=== PATIENT | male | born 1985 | race Caucasian/White ===

== ENCOUNTER 2016-09-30 17:59 | Inpatient (IN) | payer BC ==
[~2016-09-30] VITALS: Ht 175.3 cm; Wt 88.2 kg
[~2016-09-30 17:59] MED LIST: PSDUNK
[2016-09-30 18:39] LABS: BASO % 0.3 %; BASO ABS # 0.02 K/uL (0-0.2); COMPLETE YES; EOS % 0.5 %; HEMATOCRIT 42.5 % (42-52); IG% 0.2 %; LYMPH % 36.3 %; LYMPH ABS # 2.26 K/uL (1.2-3.4); MEAN CORPUSCULAR HEMOGLOBIN 28.7 pg (25-34); MEAN CORPUSCULAR HGB CONC 34.1 g/dl (32-36); MEAN PLATELET VOLUME 9.9 fL (7.4-10.4); MONO % 10.6 %; NEUT % 52.1 %; PLATELET COUNT 227 K/uL (130-400); RED BLOOD COUNT 5.06 M/uL (4.7-6.1); WHITE BLOOD COUNT 6.23 K/uL (4.8-10.8)
--- NOTE | 2016-09-30 18:43 | DIAGNOSTIC IMAGING REPORT ---
CHEST ONE VIEW PORTABLE HISTORY: Atypical Chest Pain COMPARISON: None. FINDINGS: The lungs are clear. Cardiac silhouette is top normal in size. This may be accentuated by the portable technique. No pleural effusions. No pneumothorax. IMPRESSION: No acute process. Electronically signed by: Bong Grant M.D. 09/30/2016 6:41 PM Dictated Date/Time: 09/30/2016 6:40 PM
[2016-09-30 18:57] LABS: BLOOD UREA NITROGEN 21 mg/dl (7-18); BUN/CREATININE RATIO 16.5 (10-20); CALCIUM 8.7 mg/dl (8.5-10.1); CARBON DIOXIDE 27 mmol/L (21-32); CHLORIDE 108 mmol/L (98-107); GLUCOSE 101 mg/dl (70-99); POTASSIUM 3.7 mmol/L (3.5-5.1); SODIUM 140 mmol/L (136-145)
[2016-09-30] MEDS ORDERED: NITROGLYCERIN 0.4 MG SL PER TAB CHARGE SL PRN ×2 (19:00→20:00)
[2016-09-30 19:01] LABS: CKMB/CK RATIO 1.1 (0-3.0)
[2016-09-30] MEDS ORDERED: SODIUM CHLORIDE 0.9% 500ML 500 ML IV STA (19:29)
[2016-09-30] MEDS ORDERED: METOPROLOL TARTRATE 25 MG TAB PO ONE (19:50)
[2016-09-30] MEDS ORDERED: ASPIRIN 324 MG CHEW PO STA (19:55)
[2016-09-30] MEDS ORDERED: NITROGLYCERIN OINT 2% 1GM PACKET ONE (19:57)
[2016-09-30] MEDS ORDERED: ASPIRIN 324 MG CHEW ONE (19:59)
[2016-09-30] MEDS ORDERED: ONDANSETRON INJ 2 MG/ML 2 ML VIAL IV PRN (20:00)
[2016-09-30] MEDS: NITROGLYCERIN OINT 2% 1GM PACKET EXT SCH (20:01)
--- NOTE | 2016-09-30 20:01 | EMERGENCY ROOM VISIT NOTE ---
History Report prepared by Obinna: Hebert Walters Under the Supervision of: Dr. Vinnie Andres D.O. First contact with patient: 18:07 Chief Complaint: CHEST PAIN Stated Complaint: REFERRED BY MD FOR CHEST PAIN History of Present Illness The patient is a 31 year old male who presents to the Emergency Room with complaints of constant middle chest pain since he woke up at 0630 this morning. The patient describes a pressure sensation. The pain improves somewhat when he lays down. The patient notices the pain more when he takes a deep breath. He denies radiation to the arm or jaw, diaphoresis, or nausea with the pain. He denies history of hypertension, diabetes, high cholesterol, CAD or sudden in family at a young age. No other medical problems. The patient denies history of blood clots, and has not had any recent long trips or surgeries. He denies any swelling of the legs or hemoptysis. He denies drug or alcohol use. He has no known tick bites recently. The patient was referred to the ED by [facility] because they could not obtain his blood work. He was given 324 mg Aspirin at [facility]. Patient denies headache, change in vision, cough, rhinorrhea, fevers, shortness of breath, vomiting, diarrhea, pain with urination, and melena. Source of History: patient Onset: 0630 this morning Position: chest Quality: pressure Timing: constant Modifying Factors (Relieving): other (laying down) Associated Symptoms: No fevers, No headache, No diaphoresis, No cough, No SOB, No nausea, No vomiting, No melena, No diarrhea, No urinary symptoms Review of Systems See HPI for pertinent positives & negatives. A total of 10 systems reviewed and were otherwise negative. Past Medical & Surgical Medical Problems: (1) No known health problems Family History No pertinent family history Social History Smoking Status: Never Smoker Occupation Status: employed Current/Historical Medications No Active Prescriptions or Reported Meds Allergies Coded Allergies: No Known Allergies (Unverified , 09/30/16) Physical Exam Vital Signs Date Time Temp Pulse Resp B/P (MAP) Pulse Ox O2 Delivery O2 Flow Rate FiO2 09/30/16 20:35 78 18 107/68 95 Room Air 09/30/16 19:37 79 18 131/64 95 Room Air 09/30/16 19:26 89 18 102/72 93 Room Air 09/30/16 19:17 83 18 127/76 96 Room Air 09/30/16 19:05 82 09/30/16 18:48 85 18 137/75 96 Room Air 09/30/16 18:32 Room Air 09/30/16 18:05 37.0 89 16 141/76 98 Room Air Physical Exam GENERAL: Sitting up in bed, alert, well appearing, well nourished, no distress, non-toxic EYE EXAM: normal conjunctiva. OROPHARYNX: no exudate, no erythema, lips, buccal mucosa, and tongue normal and mucous membranes are moist NECK: supple, no nuchal rigidity, no adenopathy, non-tender LUNGS: Clear to auscultation. Normal chest wall mechanics HEART: no murmurs, S1 normal and S2 normal ABDOMEN: abdomen soft, non-tender, normo-active bowel sounds, no masses, no rebound or guarding. BACK: Back is symmetrical on inspection and there is no deformity, no midline tenderness, no CVA tenderness. SKIN: no rashes and no bruising UPPER EXTREMITIES: upper extremities are grossly normal. LOWER EXTREMITIES: No pitting edema. Calves are equal bilaterally. NEURO EXAM: Normal sensorium, cranial nerves II-XII grossly intact, normal speech, no gross weakness of arms, no gross weakness of legs. Gross sensation intact. Medical Decision & Procedures ER Provider Diagnostic Interpretation: Radiology results as stated below per my review and the radiologist's interpretation: CHEST ONE VIEW PORTABLE HISTORY: Atypical Chest Pain COMPARISON: None. FINDINGS: The lungs are clear. Cardiac silhouette is top normal in size. This may be accentuated by the portable technique. No pleural effusions. No pneumothorax. IMPRESSION: No acute process. Electronically signed by: Bong Grant M.D. 09/30/2016 6:41 PM Dictated Date/Time: 09/30/2016 6:40 PM Laboratory Results 09/30/16 18:27 Red Blood Count 5.06, Mean Corpuscular Volume 84.0, Mean Corpuscular Hemoglobin 28.7, Mean Corpuscular Hemoglobin Concent 34.1, Mean Platelet Volume 9.9, Neutrophils (%) (Auto) 52.1, Lymphocytes (%) (Auto) 36.3, Monocytes (%) (Auto) 10.6, Eosinophils (%) (Auto) 0.5, Basophils (%) (Auto) 0.3, Neutrophils # (Auto ) 3.25, Lymphocytes # (Auto) 2.26, Monocytes # (Auto) 0.66, Eosinophils # (Auto ) 0.03, Basophils # (Auto) 0.02 09/30/16 18:27 Test 09/30/16 18:27 09/30/16 19:51 09/30/16 20:31 White Blood Count 6.23 K/uL (4.8-10.8) Red Blood Count 5.06 M/uL (4.7-6.1) Hemoglobin 14.5 g/dL (14.0-18.0) Hematocrit 42.5 % (42-52) Mean Corpuscular Volume 84.0 fL (80-100) Mean Corpuscular Hemoglobin 28.7 pg (25-34) Mean Corpuscular Hemoglobin Concent 34.1 g/dl (32-36) Platelet Count 227 K/uL (130-400) Mean Platelet Volume 9.9 fL (7.4-10.4) Neutrophils (%) (Auto) 52.1 % Lymphocytes (%) (Auto) 36.3 % Monocytes (%) (Auto) 10.6 % Eosinophils (%) (Auto) 0.5 % Basophils (%) (Auto) 0.3 % Neutrophils # (Auto) 3.25 K/uL (1.4-6.5) Lymphocytes # (Auto) 2.26 K/uL (1.2-3.4) Monocytes # (Auto) 0.66 K/uL (0.11-0.59) Eosinophils # (Auto) 0.03 K/uL (0-0.5) Basophils # (Auto) 0.02 K/uL (0-0.2) RDW Standard Deviation 39.5 fL (36.4-46.3) RDW Coefficient of Variation 13.0 % (11.5-14.5) Immature Granulocyte % (Auto) 0.2 % Immature Granulocyte # (Auto) 0.01 K/uL (0.00-0.02) D-Dimer 280 ug/L FEU (0-500) Anion Gap 5.0 mmol/L (3-11) Est Creatinine Clear Calc Drug Dose 89.6 ml/min Estimated GFR () 83.7 Estimated GFR (Non- 72.2 BUN/Creatinine Ratio 16.5 (10-20) Uric Acid 5.1 mg/dl (2.6-7.2) Calcium Level 8.7 mg/dl (8.5-10.1) Creatine Kinase MB Ratio (0-3.0) Laboratory results per my review. Medications Administered Medications (Trade) Dose Ordered Sig/Faisal Route Start Time Stop Time Status Last Admin Dose Admin Nitroglycerin (Nitrostat Tab) 0.4 mg Q5M PRN SL 09/30/16 19:00 10/30/16 18:59 09/30/16 19:17 0.4 MG Sodium Chloride 500 ml @ 999 mls/hr Q31M STAT IV 09/30/16 19:29 09/30/16 19:59 DC 09/30/16 19:29 999 MLS/HR Nitroglycerin (Nitroglycerin 2% Oint) 1 inch Q6H EXT 09/30/16 20:00 10/30/16 19:59 09/30/16 20:01 1 INCH Metoprolol Tartrate (Lopressor Tab) 25 mg 1950 ONCE PO 09/30/16 19:50 09/30/16 19:54 DC 09/30/16 20:09 25 MG Potassium Chloride/Sodium Chloride 1,000 ml @ 100 mls/hr Q10H IV 09/30/16 20:00 10/30/16 19:59 09/30/16 20:09 100 MLS/HR Aspirin (Aspirin Chew) 324 mg STK-MED ONCE .ROUTE 09/30/16 19:59 09/30/16 20:00 DC 09/30/16 20:01 324 MG ECG Indication: chest pain Rate (beats per minute): 88 Rhythm: sinus rhythm Findings: T-wave inversion (inferior and anterior leads), other (normal axis, normal intervals) Comparison ECG Date: no prior available ED Course ED COURSE: Vital signs were reviewed and showed hypertension. The patients medical record was reviewed The above diagnostic studies were performed and reviewed. ED treatments and interventions as stated above. 1814: The patient was evaluated in room C4. A complete history and physical examination was performed. 0: Nitroglycerin 0.4 mg SL. 1914: The patient is receiving his Nitro now. 0: The patient's chest pain has improved after Nitro. 1924: Discussed the case with Dr. Newton, [facility] [place]ist. The patient will be evaluated. 1928: NSS 500 ml @ 999 mls/hr. 1934: Upon reevaluation, the patient is doing fine.I discussed my findings with the patient and he understands and agrees with the treatment plan. Based on the patients age, coexisting illnesses, exam and lab findings the decision to treat as an inpatient was made. The patient remained stable while under my care. The patient will be evaluated for further management. 1939: Chest pain has resolved and the patient's repeat EKG is improved. Dr. Newton at bedside. Medical Decision Differential diagnoses includes but is not limited to acute coronary syndrome, myocardial infarction, pericarditis, pulmonary embolus, aortic dissection, pneumonia, pneumothorax, musculoskeletal, shingles, esophageal. Blood Pressure Screening: The patient was found to have a slightly elevated blood pressure due to circumstances. I do not believe that the patient requires hypertension monitoring. Medication Reconciliation: I attest that I have personally reviewed the patient' s current medication list. Patient is a 31-year-old male who presents the ER referred in [facility] for chest pain associated with abnormal EKG. EKG does show flipped T waves. A repeat EKG here was unchanged from the initial EKG at [facility]. Patient did still have mild chest tightness and was given nitroglycerin and the pain resolved per patient. Patient was given aspirin prior to arrival. He has no CVAT risk factors. No PE risk factors. D-dimer was negative. Troponin was negative. Hemoglobin was normal. No history of tick bites. Bedside ultrasound shows no pericardial fluid. LV appears slightly enlarged but no obvious wall motion abnormality. Patient was in its internal medicine for further workup overnight. Repeat EKG here was fairly unchanged as well prior to admission. Consults Time Called: 1919 Consulting Physician: Dr. Newton [facility] Hospitalist. Returned Call: 1924 The patient will be evaluated. Impression Primary Impression: Substernal precordial chest pain Additional Impression: Abnormal EKG Scribe Attestation The scribe's documentation has been prepared under my direction and personally reviewed by me in its entirety. I confirm that the note above accurately reflects all work, treatment, procedures, and medical decision making performed by me. Departure Information Dispostion Being Evaluated By Hospitalist Prescriptions No Active Prescriptions or Reported Meds Referrals No Doctor, Assigned (PCP) Patient Instructions My [facility] Problem Qualifiers
[2016-09-30] MEDS: NSS + 20MEQ KCL 1000ML 1,000 ML IV SCH (20:09)
--- NOTE | 2016-09-30 20:41 | History and Physical ---
History & Physical Date & Time of Service: Sep 30, 2016 at 20:29 Chief Complaint: Referred By Md For Chest Pain Primary Care Physician: No Doctor, Assigned History of Present Illness Source: patient The patient is a 31-year-old male who was woken up this morning by midsternal chest discomfort/chest pressure at around 0630 He went to work today and his symptoms persisted. At 1700 tonight he went to [facility], where he underwent an EKG that was abnormal, and was then referred to the emergency department for assessment. In the emergency department EKG repeated was again abnormal but not significantly different from the EKG earlier in the evening. He was given sublingual nitroglycerin with some improvement in symptoms. His pain remains centrally, and does not have radiation in any direction. His family history is negative for heart disease, or clots. He has not had any previous symptoms such as this in the past. He has not had any generalized myalgias or arthralgias or muscle cramping, has not had any tick bites or other insect bites Past Medical/Surgical History Medical Problems: (1) No known health problems Status: Chronic Family History No pertinent family history Social History Smoking Status: Never Smoker Smokeless Tobacco Use: No Alcohol Use: none Drug Use: none Occupational Status: employed [employer] History of MDRO: No Allergies Coded Allergies: No Known Allergies (Unverified , 09/30/16) Home Medications No Active Prescriptions or Reported Meds Review of Systems The patient denies palpitations, shortness of breath, cough, lower extremity swelling, sore throat, fevers, chills, sweats, weight change, fatigue, nausea, vomiting, abdominal pain, pelvic pain, blood in urine or stool, dysuria, urinary frequency or urgency, lightheadedness, dizziness, headache, memory loss , rash, abnormal bruising or bleeding, imbalance, focal or generalized weakness , numbness or tingling in arms or legs, arthralgias or myalgias, back or neck pain, night sweats, or allergy symptoms. The review of systems is otherwise negative other than for that already noted above, and at least 10 systems have been reviewed. Physical Exam Vital Signs Date Time Temp Pulse Resp B/P (MAP) Pulse Ox O2 Delivery O2 Flow Rate FiO2 09/30/16 19:37 79 18 131/64 95 Room Air 09/30/16 19:26 89 18 102/72 93 Room Air 09/30/16 19:17 83 18 127/76 96 Room Air 09/30/16 19:05 82 09/30/16 18:48 85 18 137/75 96 Room Air 09/30/16 18:32 Room Air 09/30/16 18:05 37.0 89 16 141/76 98 Room Air The patient is awake, well-developed and adequately nourished, alert and oriented 3, normocephalic and atraumatic, lying in bed and in no acute distress. HEENT--PERRL, EOMI, mucous membranes and oropharynx normal. Neck--supple, no JVD or bruits, thyroid normal, trachea midline, no adenopathy. Heart--normal S1 and S2, no extra beats, no murmurs, rubs or gallops. Lungs--clear bilaterally with good air movement, no respiratory distress, no accessory muscle use. Abdomen--normal bowel sounds and soft, nontender and nondistended, no hernias or masses, no organomegaly. Extremities--no cyanosis, clubbing or edema. There are good distal pulses b/l. Dermatologic--normal skin turgor, normal color, warm and dry, no abnormal lymph nodes, no rash. Neurologic--cranial nerves II through XII grossly intact, motor and sensory examination normal. Rheumatologic--normal range of motion, nontender, muscles and joints. Psychiatric--normal affect. Diagnostics Laboratory Results Results Past 24 Hours Test 09/30/16 18:27 09/30/16 19:51 Range/Units White Blood Count 6.23 4.8-10.8 K/uL Red Blood Count 5.06 4.7-6.1 M/uL Hemoglobin 14.5 14.0-18.0 g/dL Hematocrit 42.5 42-52 % Mean Corpuscular Volume 84.0 80-100 fL Mean Corpuscular Hemoglobin 28.7 25-34 pg Mean Corpuscular Hemoglobin Concent 34.1 32-36 g/dl Platelet Count 227 130-400 K/uL Mean Platelet Volume 9.9 7.4-10.4 fL Neutrophils (%) (Auto) 52.1 % Lymphocytes (%) (Auto) 36.3 % Monocytes (%) (Auto) 10.6 % Eosinophils (%) (Auto) 0.5 % Basophils (%) (Auto) 0.3 % Neutrophils # (Auto) 3.25 1.4-6.5 K/uL Lymphocytes # (Auto) 2.26 1.2-3.4 K/uL Monocytes # (Auto) 0.66 0.11-0.59 K/uL Eosinophils # (Auto) 0.03 0-0.5 K/uL Basophils # (Auto) 0.02 0-0.2 K/uL RDW Standard Deviation 39.5 36.4-46.3 fL RDW Coefficient of Variation 13.0 11.5-14.5 % Immature Granulocyte % (Auto) 0.2 % Immature Granulocyte # (Auto) 0.01 0.00-0.02 K/uL D-Dimer 280 0-500 ug/L FEU Sodium Level 140 136-145 mmol/L Potassium Level 3.7 3.5-5.1 mmol/L Chloride Level 108 98-107 mmol/L Carbon Dioxide Level 27 21-32 mmol/L Anion Gap 5.0 3-11 mmol/L Blood Urea Nitrogen 21 7-18 mg/dl Creatinine 1.30 0.60-1.40 mg/dl Est Creatinine Clear Calc Drug Dose 89.6 ml/min Estimated GFR () 83.7 Estimated GFR (Non- 72.2 BUN/Creatinine Ratio 16.5 10-20 Random Glucose 101 70-99 mg/dl Uric Acid 5.1 2.6-7.2 mg/dl Calcium Level 8.7 8.5-10.1 mg/dl Total Creatine Kinase 141 39-308 U/L Creatine Kinase MB 1.6 0.5-3.6 ng/ml Creatine Kinase MB Ratio 1.1 0-3.0 Troponin I < 0.015 0-0.045 ng/ml Diagnostic Radiology Patient Name: DESTINEY CARBAJAL Unit Number: [id number] Dictated: 09/30/161839 Transcribed: 09/30/161839 [place] Printed Date/Time: [~ rep prt dt]/[~ rep prt tm] [~ rep ct labl] - [~ rep ct ivnm] [facility] [place] [address] Dictated: 09/30/161839 Transcribed: 09/30/161839 [facility] Printed Date/Time: [~ rep prt dt]/[~ rep prt tm] [~ rep ct labl] - [~ rep ct ivnm] [~ rep ct add3]] CHEST ONE VIEW PORTABLE HISTORY: Atypical Chest Pain COMPARISON: None. FINDINGS: The lungs are clear. Cardiac silhouette is top normal in size. This may be accentuated by the portable technique. No pleural effusions. No pneumothorax. IMPRESSION: No acute process. Electronically signed by: Bong Grant M.D. 09/30/2016 6:41 PM Dictated Date/Time: 09/30/2016 6:40 PM The status of this report is Signed. Draft = Not yet reviewed or approved by Radiologist. Signed = Reviewed and approved by Radiologist. <AttendingPhy></AttendingPhy> <FamilyPhy>No Doctor, Assigned</FamilyPhy> < PrimaryPhy>No Doctor, Assigned</PrimaryPhy> <UnitNumber>[id number]</UnitNumber> <VisitNumber>[id number]</VisitNumber> <PatientName>DESTINEY CARBAJAL</ PatientName> <DateOfBirth>1985</DateOfBirth> <Location>[facility]</Location> < ServiceDate>09/30/16</ServiceDate> <MNE>ESINDI</MNE> <OrderingPhy>Vinnie Andres DO</OrderingPhy> <OrderingPhyMNE>f rep ord dr olmos</OrderingPhyMNE> < DictatingPhyMNE>f rep dict dr olmos</DictatingPhyMNE> <CCListMNE>f rep ct mne</ CCListMNE> <AdmittingPhyMNE>f pt admit dr olmos</AdmittingPhyMNE> <AttendingPhyMNE >f pt attend dr olmos</AttendingPhyMNE> <ConsultingPhyMNE>f pt consult dr olmos</ConsultingPhyMNE> <FamilyPhyMNE>f pt fam dr olmos</FamilyPhyMNE> <OtherPhyMNE>f pt other dr olmos</OtherPhyMNE> < PrimaryPhyMNE>f pt prim care dr olmos</PrimaryPhyMNE> <ReferringPhyMNE>f pt referring dr olmos</ReferringPhyMNE> EKG EKG shows normal sinus rhythm, there are T-wave inversions in leads 3, E3 and V4 , less so in aVF. Impression Assessment and Plan Substernal precordial chest pressure with abnormal EKG--the patient will be started on metoprolol tartrate 25 mg by mouth twice a day, Nitropaste when his feet are chest wall every 6 hours, aspirin 81 mg by mouth every morning, and heparin drip per weight-based protocol. Differential includes unstable angina, pericarditis, incipient Takotsubo's. He'll be admitted to the telemetry unit for serial cardiac enzymes, cardiac rhythm monitoring, a 2-D echocardiogram with Dopplers, and cardiology consult. We'll follow serial EKGs, CBCD , BMP and magnesium levels. Level of Care Telemetry Advanced Directives Existing Advance Directive: No Existing Living Will: No Existing Power of Barrel Drainer: No Resuscitation Status FULL RESUSCITATION VTE Prophylaxis VTE Risk Assessment Done? Y/N: Yes Risk Level: Low Given or contraindicated: Other Anticoagulation (heparin drip per standard weight-based protocol.)
[2016-09-30 21:05] LABS: CKMB/CK RATIO 1.3 (0-3.0)
[2016-09-30 21:11] LABS: PROTHROMBIN TIME (PATIENT) 10.7 SECONDS (9.0-12.0)
[2016-09-30] MEDS ORDERED: HEPARIN 25000 UNIT/500 ML D5W ONE (21:20)
[2016-09-30 22:02] VITALS: BP 124/65; PULSE 81; TEMP 36.8; O2SAT 98; Ht 175.3 cm; Wt 88.2 kg
[2016-09-30] MEDS ORDERED: HEPARIN 25,000 UNIT/500ML D5W 500 ML IV PRN (22:30)
[2016-09-30 23:55] VITALS: BP 114/61; PULSE 66; TEMP 36.9; O2SAT 95
[2016-10-01] VITALS (9 sets, daily range): BP systolic 114–143; BP diastolic 55–69; PULSE 68–76; TEMP 36.5–36.7; O2SAT 94–100
[2016-10-01] MEDS: ACETAMINOPHEN 325 MG TAB PO PRN ×3 (00:01→08:15)
[2016-10-01] MEDS: NITROGLYCERIN OINT 2% 1GM PACKET EXT SCH ×3 (01:47→14:00)
[2016-10-01 04:21] LABS: PROTHROMBIN TIME (PATIENT) 11.2 SECONDS (9.0-12.0)
[2016-10-01 04:27] LABS: BASO % 0.3 %; BASO ABS # 0.02 K/uL (0-0.2); COMPLETE YES; EOS % 0.2 %; HEMATOCRIT 38.7 % (42-52); IG% 0.2 %; LYMPH % 35.8 %; LYMPH ABS # 2.11 K/uL (1.2-3.4); MEAN CELL VOLUME 85.6 fL (80-100); MEAN CORPUSCULAR HEMOGLOBIN 28.5 pg (25-34); MEAN CORPUSCULAR HGB CONC 33.3 g/dl (32-36); MEAN PLATELET VOLUME 9.9 fL (7.4-10.4); MONO % 11.7 %; NEUT % 51.8 %; PLATELET COUNT 184 K/uL (130-400); RED BLOOD COUNT 4.52 M/uL (4.7-6.1)
[2016-10-01 04:30] LABS: BLOOD UREA NITROGEN 17 mg/dl (7-18); BUN/CREATININE RATIO 17.7 (10-20); CALCIUM 8.4 mg/dl (8.5-10.1); CARBON DIOXIDE 27 mmol/L (21-32); CHLORIDE 111 mmol/L (98-107); CKMB/CK RATIO 1.5 (0-3.0); CREATININE 0.94 mg/dl (0.60-1.40); GLUCOSE 98 mg/dl (70-99); MAGNESIUM 2.1 mg/dl (1.8-2.4); POTASSIUM 4.2 mmol/L (3.5-5.1); SODIUM 142 mmol/L (136-145)
[2016-10-01] MEDS: NSS + 20MEQ KCL 1000ML 1,000 ML IV SCH (05:46)
[2016-10-01] MEDS ORDERED: ASPIRIN 81 MG ECTAB PO SCH (09:00)
[2016-10-01] MEDS ORDERED: METOPROLOL TARTRATE 25 MG TAB PO SCH (09:00)
--- NOTE | 2016-10-01 09:26 | Cardiology Consultation ---
Cardiology Consultation Date of Consultation: Oct 01, 2016. Requesting Physician: Dr. Newton Reason for Consultation: Chest pain Pt evaluation today including: conversation w/ patient, chart review, conversation w/ attending History of Present Illness Mr. Escoto is a 31 year old male with no significant medical history. He presented to [facility] emergency department on 09/30/16 with chest pain. He reports waking up around 6:30 am yesterday morning with central chest pressure. His pain persisted the remainder of the day while at work. 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 He noted his pain was aggravated by bending and activity. It improved somewhat with lying down. His pain did not radiate into his neck, jaw or upper extremities. He had no associated dyspnea, diaphoresis, nausea, vomiting or lightheadedness. After work around 5 PM he presented to [facility] where an electrocardiogram was performed and was abnormal showing T wave inversions. He was referred to the emergency department where he was subsequently admitted. He was given nitroglycerin in the ED with reported improvement in his pain. His cardiac enzymes have been undetectable since the time of admission. His electrocardiogram continues to show T wave inversions. A chest x-ray demonstrated no acute process. He was seen at the bedside this morning and is resting comfortably. He is currently chest pain free. He states his pain resolved while in the emergency department and he has not had any recurrent pain. He denies dyspnea, orthopnea, PND, peripheral edema, palpitations, lightheadedness, presyncope or syncope. Over the weekend and the night before developing his chest discomfort he had been exercising performing heavy lifting. He has no history of cardiovascular disease. No family history of premature CAD. No history of hypertension. His blood pressure was mildly elevated at the time of admission and has been well controlled since. He does not take any medications on a regular basis. The remainder of his review of systems is unremarkable. Family History No pertinent family history Social History Smoking Status: Never Smoker History of Alcohol Use: No Single without children. 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 Allergies Coded Allergies: No Known Allergies (Unverified , 09/30/16) Medications Current Inpatient Medications Medications (Trade) Dose Ordered Sig/Faisal Route Start Time Stop Time Status Last Admin Dose Admin Nitroglycerin (Nitrostat Tab) 0.4 mg Q5M PRN SL 09/30/16 19:00 10/30/16 18:59 09/30/16 19:17 0.4 MG Metoprolol Tartrate (Lopressor Tab) 25 mg BID PO 10/01/16 09:00 10/31/16 08:59 10/01/16 07:24 25 MG Nitroglycerin (Nitroglycerin 2% Oint) 1 inch Q6H EXT 09/30/16 20:00 10/30/16 19:59 10/01/16 07:25 1 INCH Ondansetron HCl (Zofran Inj) 4 mg Q6H PRN IV 09/30/16 20:00 10/30/16 19:59 Potassium Chloride/Sodium Chloride 1,000 ml @ 100 mls/hr Q10H IV 09/30/16 20:00 10/30/16 19:59 10/01/16 05:46 100 MLS/HR Acetaminophen (Tylenol Tab) 650 mg Q4H PRN PO 09/30/16 20:00 10/30/16 19:59 10/01/16 08:15 650 MG Nitroglycerin (Nitrostat Tab) 0.4 mg UD PRN SL 09/30/16 20:00 10/30/16 19:59 Aspirin (Ecotrin Tab) 81 mg QAM PO 10/01/16 09:00 10/31/16 08:59 10/01/16 07:24 81 MG Heparin Sodium/ Dextrose 500 ml @ 28 mls/hr [id number] PRN IV 09/30/16 22:30 10/30/16 22:29 Physical Exam Vital Signs Past 12 Hours Date Time Temp Pulse Resp B/P (MAP) Pulse Ox O2 Delivery O2 Flow Rate FiO2 10/01/16 08:03 36.6 76 16 118/62 (80) 96 Room Air 10/01/16 08:00 98 Room Air 10/01/16 07:25 36.7 75 18 129/69 (89) 98 Room Air 10/01/16 04:10 36.5 68 17 114/66 (82) 99 Room Air 10/01/16 04:00 99 Room Air 10/01/16 00:01 95 Room Air 09/30/16 23:55 36.9 66 17 114/61 (78) 95 Room Air 09/30/16 22:02 36.8 81 20 124/65 98 09/30/16 21:28 70 16 122/75 96 General: Appears well and is in no acute distress. Alert and oriented x3. HEENT: Head is normal. PERRLA. EOMI. Sclera nonicteric. Ears, nose and throat unremarkable. Neck: Normal carotid upstrokes. No JVD. No carotid bruit. Lungs: Clear to auscultation bilaterally without rales, rhonchi or wheezes. Cardiac: Regular rate and rhythm. S1-S2 are normal without appreciable murmur , gallop or rub. Abdomen: Soft and nontender. Bowel sounds normal. No mass or organomegaly. No CVA tenderness. No abdominal bruit. Extremities: Without cyanosis, clubbing or peripheral edema. Peripheral pulses 2+. Skin: No rash or abnormal lesions. Vitiligo on right chest/neck. Normal turgor. Neurologic: No lateralizing changes or focal deficits. Psychiatric: Affect seems appropriate. Data Laboratory Results: Last 24 Hours Test 09/30/16 18:27 09/30/16 20:31 10/01/16 03:30 White Blood Count 6.23 K/uL 5.90 K/uL Red Blood Count 5.06 M/uL 4.52 M/uL Hemoglobin 14.5 g/dL 12.9 g/dL Hematocrit 42.5 % 38.7 % Mean Corpuscular Volume 84.0 fL 85.6 fL Mean Corpuscular Hemoglobin 28.7 pg 28.5 pg Mean Corpuscular Hemoglobin Concent 34.1 g/dl 33.3 g/dl Platelet Count 227 K/uL 184 K/uL Mean Platelet Volume 9.9 fL 9.9 fL Neutrophils (%) (Auto) 52.1 % 51.8 % Lymphocytes (%) (Auto) 36.3 % 35.8 % Monocytes (%) (Auto) 10.6 % 11.7 % Eosinophils (%) (Auto) 0.5 % 0.2 % Basophils (%) (Auto) 0.3 % 0.3 % Neutrophils # (Auto) 3.25 K/uL 3.06 K/uL Lymphocytes # (Auto) 2.26 K/uL 2.11 K/uL Monocytes # (Auto) 0.66 K/uL 0.69 K/uL Eosinophils # (Auto) 0.03 K/uL 0.01 K/uL Basophils # (Auto) 0.02 K/uL 0.02 K/uL RDW Standard Deviation 39.5 fL 41.5 fL RDW Coefficient of Variation 13.0 % 13.2 % Immature Granulocyte % (Auto) 0.2 % 0.2 % Immature Granulocyte # (Auto) 0.01 K/uL 0.01 K/uL D-Dimer 280 ug/L FEU Sodium Level 140 mmol/L 142 mmol/L Potassium Level 3.7 mmol/L 4.2 mmol/L Chloride Level 108 mmol/L 111 mmol/L Carbon Dioxide Level 27 mmol/L 27 mmol/L Anion Gap 5.0 mmol/L 4.0 mmol/L Blood Urea Nitrogen 21 mg/dl 17 mg/dl Creatinine 1.30 mg/dl 0.94 mg/dl Est Creatinine Clear Calc Drug Dose 89.6 ml/min 122.9 ml/min Estimated GFR () 83.7 123.8 Estimated GFR (Non- 72.2 106.9 BUN/Creatinine Ratio 16.5 17.7 Random Glucose 101 mg/dl 98 mg/dl Uric Acid 5.1 mg/dl Calcium Level 8.7 mg/dl 8.4 mg/dl Total Creatine Kinase 141 U/L 127 U/L 94 U/L Creatine Kinase MB 1.6 ng/ml 1.6 ng/ml 1.4 ng/ml Creatine Kinase MB Ratio 1.1 1.3 1.5 Troponin I < 0.015 ng/ml < 0.015 ng/ml < 0.015 ng/ml Prothrombin Time 10.7 SECONDS 11.2 SECONDS Prothromb Time International Ratio 1.0 1.0 Activated Partial Thromboplast Time 25.4 SECONDS 52.6 SECONDS Partial Thromboplastin Ratio 1.0 2.0 Chemistry Specimen Hemolysis Magnesium Level 2.1 mg/dl Imaging: CXR without acute process. EKG: Normal sinus rhythm at 73 bpm, T wave inversions and possible LVH Echocardiogram: Preliminary results show normal LV function with borderline LVH Assessment & Plan Mr. Escoto is a 31 year old male with no significant medical history and no cardiac risk factors who was admitted on 09/30/16 with chest pain. His pain was present upon waking up in the morning and persisted for at least 12 hours. He had no associated symptoms. His cardiac enzymes have been undetectable throughout his hospital admission. His electrocardiogram is abnormal showing T wave inversions and possible left ventricular hypertrophy. The preliminary results of his echocardiogram demonstrate normal LV function with borderline LVH which may account for his EKG changes. He had been performing heavy lifting in the days leading up to his admission and it is likely his chest pain is musculoskeletal in nature. However, give his EKG changes we recommend a stress echocardiogram to rule out cardiac ischemia. Thank you for the consultation. The patient was seen with Dr. Frank and the plan was made in collaboration with him.
[2016-10-01 13:09] LABS: CKMB/CK RATIO 0.9 (0-3.0)
--- NOTE | 2016-10-01 13:26 | Discharge Instructions ---
Discharge Instructions Date of Service Oct 01, 2016. Admission Reason for Admission: Abnormal Ekg, Substernal Precordial Chest Pain Discharge Discharge Diagnosis / Problem: chest tightness/discomfort Discharge Goals Goal(s): Decrease discomfort, Increase independence, Improve disease control Activity Recommendations Activity Limitations: resume your previous activity . Instructions / Follow-Up Instructions / Follow-Up All your lab works were normal. Stress echocardiogram was also normal. It is very less likely that your pain is from your heart. Please follow up with your primary doctor in 1-2 wks after discharge. Current Hospital Diet Patient's current hospital diet: AHA Diet (Heart Healthy) Discharge Diet Recommended Diet: Regular Diet Pending Studies Studies pending at discharge: no Medical Emergencies . Who to Call and When: Medical Emergencies: If at any time you feel your situation is an emergency, please call 911 immediately. . Non-Emergent Contact Non-Emergency issues call your: Primary Care Provider . . "Provider Documentation" section prepared by Milan Bar. . VTE Core Measure Inpt VTE Proph given/why not?: Other Anticoagulation (heparin drip per standard weight-based protocol.)
--- NOTE | 2016-10-01 13:42 | ECHOCARDIOGRAM REPORT ---
*NOTICE TO RECEIVING [employer] AGENCY This information is strictly Confidential and protected under [place] law. [place] law prohibits you from making any further disclosure of this information unless further disclosure is expressly permitted by the written consent of the person to whom it pertains or is authorized by law. A general authorization for the release of medical or other information is not sufficient for this purpose. Hospital accepts no responsibility if the information is made available to any other person, INCLUDING THE PATIENT. Interpretation Summary * Name: DESTINEY CARBAJAL Study Date: 10/01/2016 06:31 AM BP: 114/66 mmHg * Patient Location: 219 HR: 78 * : 1985 (M/d/yyyy) Gender: Male Height: 69 in * Age: 31 yrs Ethnicity: CA Weight: 194 lb * Ordering Physician: VARUN MANCINI * Performed By: Daphne Herman RCS * * Reason For Study: CHEST PAIN * BSA: 2.0 m2 * -- Conclusions -- * 1. Normal left ventricular size with hyperdynamic systolic function. EF 65-70%. No regional wall motion abnormalities. Mild concentric left ventricular hypertrophy. No significant diastolic dysfunction. * 2. No significant valvular abnormalities. * 3. No prior study available for comparison. Procedure Details * A complete two-dimensional transthoracic echocardiogram was performed (2D, M-mode, Doppler and color flow Doppler). Left Ventricle * Normal left ventricular size with hyperdynamic systolic function. EF 65-70%. No regional wall motion abnormalities. Mild concentric left ventricular hypertrophy. No significant diastolic dysfunction. Right Ventricle * The right ventricle is normal in size and function. * The right ventricular systolic function is normal as assessed by tricuspid annular plane systolic excursion (TAPSE) (normal >1.5 cm). Atria * The left atrium is borderline dilated. * Right atrial size is normal. * There is no evidence of atrial septal defect, but resolution does not allow assessment for a patent foramen ovale. Mitral Valve * The mitral valve is grossly normal. * There is no mitral valve stenosis. * There is trace mitral regurgitation. Tricuspid Valve * The tricuspid valve is not well visualized, but is grossly normal. * There is no tricuspid stenosis. * Significant tricuspid regurgitation is absent. Aortic Valve * The aortic valve is normal in structure and function. * No hemodynamically significant valvular aortic stenosis. * No aortic regurgitation is present. Pulmonic Valve * The pulmonary valve is inadequately visualized, but the Doppler data is adequate for interpretation. * There is no pulmonic valvular stenosis. * There is no significant pulmonary regurgitation. Great Vessels * The aortic root is normal size. * Aortic arch of normal dimension. Pericardium/Pleural * There is no pericardial effusion. Great Vessels * Normal inferior vena cava size and collapsability with sniff indicates a normal right atrial pressure of 3 mmHg MMode 2D Measurements and Calculations IVSd 1.2 cm IVSs 1.9 cm LVIDd 4.4 cm LVIDs 2.6 cm LVPWd 1.2 cm LVPWs 1.9 cm IVS/LVPW 0.97 FS 41.6 % EDV(Teich) 86.9 ml ESV(Teich) 23.7 ml EF(Teich) 72.8 % EDV(cubed) 84.2 ml ESV(cubed) 16.8 ml EF(cubed) 80.1 % % IVS thick 63.9 % % LVPW thick 59.4 % LV mass(C)d 183.9 grams LV mass(C)dI 90.2 grams/m\S\2 LV mass(C)s 199.5 grams LV mass(C)sI 97.9 grams/m\S\2 SV(Teich) 63.2 ml SI(Teich) 31.0 ml/m\S\2 SV(cubed) 67.4 ml SI(cubed) 33.1 ml/m\S\2 Ao root diam 3.2 cm Ao root area 8.3 cm\S\2 LA dimension 3.8 cm LA/Ao 1.2 LVOT diam 2.4 cm LVOT area 4.6 cm\S\2 LVAd ap4 30.0 cm\S\2 LVLd ap4 8.6 cm EDV(MOD-sp4) 87.2 ml EDV(sp4-el) 89.3 ml LVAs ap4 15.6 cm\S\2 LVLs ap4 7.1 cm ESV(MOD-sp4) 30.8 ml ESV(sp4-el) 29.1 ml EF(MOD-sp4) 64.7 % EF(sp4-el) 67.4 % SV(MOD-sp4) 56.4 ml SI(MOD-sp4) 27.7 ml/m\S\2 SV(sp4-el) 60.2 ml SI(sp4-el) 29.5 ml/m\S\2 Doppler Measurements and Calculations MV E max gurjit 99.2 cm/sec MV A max gurjit 69.6 cm/sec MV E/A 1.4 MV dec time 0.19 sec Ao V2 max 141.2 cm/sec Ao max PG 8.0 mmHg Ao max PG (full) -0.34 mmHg SHIVANI(V,A) 4.7 cm\S\2 SHIVANI(V,D) 4.7 cm\S\2 LV V1 max PG 8.3 mmHg LV V1 max 144.1 cm/sec
--- NOTE | 2016-10-01 13:44 | Discharge Summary ---
Discharge Summary Date of Service Oct 01, 2016. (Milan Bar MD) Discharge Summary Admission Date: Sep 30, 2016 at 20:27 Discharge Date: Oct 01, 2016 Discharge Disposition: Home Principal Diagnosis: chest pressure/discomfort (Milan Bar MD) Medication Reconciliation Medication Profile: No Active Prescriptions or Reported Meds Discharge Exam Review of Systems: Constitutional: No fever, No chills Respiratory: No cough, No shortness of breath, No dyspnea on exertion, No dyspnea at rest Abdomen: No pain, No nausea, No vomiting, No diarrhea, No constipation Musculoskeletal: No muscle pain Genitourinary - Male: No dysuria Integumentary: No rash Physical Exam: General Appearance: WD/WN, no apparent distress Neck: supple, trachea midline Respiratory/Chest: chest non-tender, lungs clear, normal breath sounds, no respiratory distress, no accessory muscle use Cardiovascular: regular rate, rhythm, no edema Abdomen / GI: normal bowel sounds, non tender, soft Extremities: no calf tenderness, no pedal edema, non-tender Neurologic/Psychiatric: alert, normal mood/affect, oriented x 3 Skin: normal color, warm/dry, no rash (Milan Bar MD) no more chest pain. Review of Systems: Constitutional: No fever Respiratory: No cough, No shortness of breath Cardiovascular: No chest pain, No orthopnea Physical Exam: General Appearance: no apparent distress Respiratory/Chest: lungs clear, no respiratory distress Cardiovascular: regular rate, rhythm Abdomen / GI: normal bowel sounds, non tender, soft Neurologic/Psychiatric: alert, oriented x 3 Skin: warm/dry (Della Herman M.D.) Hospital Course This is a 31 y/o male with no significant medical history presented to the hospital complaining of chest pressure/discomfort X1day. He reports waking up around 6:30 am with central chest pressure. His pain persisted the remainder of the day while at work. 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 He noted his pain was aggravated by bending and activity. It improved somewhat with lying down. The pain did not radiate into his neck, jaw or upper extremities. Denies dyspnea, diaphoresis, nausea, vomiting or lightheadedness. [facility] work [facility] and showed T wave inversions. He was referred to the emergency department where he was subsequently admitted. He was given nitroglycerin in the ED with reported improvement in his pain. He was admitted to Tele for further workup. No acute event overnight. His cardiac enzymes have been undetectable since the time of admission. His electrocardiogram continues to show T wave inversions. A chest x-ray demonstrated no acute process. Cardiology was consulted and they recommended stress Echo, which was negative also. Given the symptoms and all the negative workups it is most likely MSK pain. Differential diagnosis also includes GERD; however given that in the past he had no symptoms of acid reflex , it is very less likely. No further workups are required at this moment. On discharge patient denies any chest pain or SOB. He was stable to be discharge. Patient was instructed to follow up with the PCP in 1-2 wks. Total Time Spent: Less than 30 minutes This includes examination of the patient, discharge planning, medication reconciliation, and communication with other providers. (Milan Bar MD) Resident Physician Supervision Note: I was present with Dr. Bar in bedside. I verified the will history and physical , reviewed labs and image studies, discussed the case with the resident and agree with the findings and care plan. Total Time Spent: Greater than 30 minutes (35) (Della Herman M.D.) Discharge Instructions Please refer to the electronic Patient Visit Report (Discharge Instructions) for additional information. (Milan Bar MD)
== END 2016-10-01 14:22 | disposition home or self-care (01) | DRG 313 ==
LOC: C.EDB 18:01 → C.2T 20:27 → ENRESERV 20:34
PROVIDERS: ADMIT Hospitalist; ATTEND Family Medicine
DX: R07.2 Precordial pain (principal); R94.31 Abnormal electrocardiogram [ECG] [EKG]